=== PATIENT | female | born 1985 | race Caucasian/White ===

== ENCOUNTER 2021-03-12 09:29 | Inpatient (IN) ==
[2021-03-12] MEDS ORDERED: SOLU-Medrol 125 MG VIAL IVP ONE (09:37)
[2021-03-12] MEDS ORDERED: DUONEB 0.5 MG/3 MG (3 mL) NEB STA (09:37)
[2021-03-12] MEDS ORDERED: TORADOL 30 MG VIAL IVP STA (09:37)
[2021-03-12] MEDS ORDERED: SOLU-Medrol 125 MG VIAL ONE (09:37)
[2021-03-12] MEDS ORDERED: TORADOL 30 MG VIAL ONE (09:37)
[2021-03-12 09:52] VITALS: BMI 40.4
--- NOTE | 2021-03-12 09:54 | DR.SOBA ---
HPI Time Seen Time Seen by Provider: 03/12/21 09:30 HPI Comment HPI Comment: PATIENT WITH A HISTORY OF ASTHMA, COMPLAINS OF DIFFICULTY BREATHING, PRODUCTIVE COUGH, LEFT SIDED CHEST PAINS, SHARP IN CHARACTER X 2 WEEKS. EVALUATED IN EMERGENCY ROOM 1 WEEK AGO AND PLACED ON ATIBIOTIC CEFDINIR AND PREDNISONE. EVALUATED BY PRIMARY CARE PROVIDER AND PLACED ON ANTIBIOTIC ZITHROMAX. PATIENT NOW COMPLAINS OF BLOOD IN HER SPUTUM. Complaints Chief Complaint Doctors Comments: PRODUCTIVE COUGH, DIFFICULTY BREATHING COVID-19 Coronavirus symptoms experienced: Coughing and Shortness of Breath Reviewed Nurses Notes Reviewed: Yes Source History Provided: Patient Mode of Arrival Mode of Arrival: Ambulatory Timing Onset of Chief Complaint: 01/29/21 Duration Onset: a.m. (2) Duration: Weeks Context Onset:: At Rest PE Risk Factors:: Immobilization (OBESITY) History of:: Asthma Currently on:: Inhaled Bronchodilators and Steroids Modifying Factors Worsens:: Nothing Improves:: Nothing Associated Signs and Symptoms Associated Signs and Symptoms: Wheeze, Cough, Hemoptysis and Chest Pain If Chest Pain Quality: Sharp and Stabbing Location: Left Lower Chest If Cough Cough: Yellow and Bloody ROS Review of Systems Constitutional: Chills Eyes: No Symptoms Reported ENTM: No Symptoms Reported Respiratoy: Productive Cough, Short of Breath and Wheezing Cardiovascular: Chest Pain Gastrointestinal/Abdominal: No Symptoms Reported Genitourinary: No Symptoms Reported Neurological: No Symptoms Reported Musculoskeletal: No Symptoms Reported Integumentary: No Symptoms Reported Hematologic/Lymphatic: No Symptoms Reported Endocrine: No Symptoms Reported Psychiatric: No Symptoms Reported All Other Systems: Reviewed and Negative PE Vital Signs Vitals: Temperature 98.3 F Pulse Rate 87 Respiratory Rate 31 Blood Pressure 144/90 O2 Sat by Pulse Oximetry 100 General Limitations: Physical Limitation General Appearance: Alert, In No Apparent Distress (MODERATE PAIN), Anxious and In Distress (MILD) Head Head Exam: Normal Inspection and Atraumatic Eyes Eye exam: Normal Appearance, PERRL and EOMI ENT ENT Exam: Normal Exam and Normal Oropharynx Neck Neck Exam: Normal Inspection and Full ROM Respiratory Respiratory Exam: Chest Wall Tenderness (MARKED LEFT ANTERIOR LAT TENDERNESS T-5 TO T-11), Prolonged Expiratory Phase and Other (DIFFUSE WHEEZES) Respiratory Exam: Bilateral: Wheezing and Lower: Decreased Breath Sounds and Lower: Dullness on Percussion Abdominal Exam Abdominal Exam: Normal Inspection, Normal Bowel Sounds and Soft Extremities Extremities Exam: Normal Inspection and Full ROM Back Back Exam: Normal Inspection and Full ROM Neurologic Neurological Exam: Alert, Oriented X3 and CN II-XII Intact Psychiatric Psychiatric Exam: Normal Affect and Normal Mood Skin Skin Exam: Warm and Dry MDM Differential Diagnosis Differential Diagnosis: Asthma, Pneumonia and Pulmonary embolism Differential Diagnosis Comment:: ACUTE EXACERBATION ASTHMA COURSE Treatment Treatment: PLACED ON SEPSIS PROTOCOL UPON ARRIVAL, 90KG/30ML, IV NORMALSALLINE 1 LITER/HR X 2, SOLUMEDROL 125MG, ROCEPHIN 1GM, TORADOL 30MG IV, THE LACTIC ACID- 1.6 TAKEN OFF SEPSIS PROTOCOL AT 1040. PATIENT HAS MINIMAL IMPROVEMENT AFTER CONTINUOUS DUO NEB AEROSOL AFTER 1 HOUR TREATMENT Reevaluation 1st: Improved (MINIMAL, WHEEZES PERSIST, IMPOVEMENT IN AIR EXCHANGE) Consultation Call Returned: 11:55 Consultation Comments: DISCUSSED FINDINGS WITH DR WOO FOR ADMIT INPATIENT ROR Labs Reviewed Laboratory Results Reviewed?: Yes Result Diagrams: 03/12/21 09:45 03/12/21 09:45 Laboratory: WBC 12.9 X10^3/uL (3.6-10.0) H 03/12/21 09:45 RBC 4.92 X10^6/uL (3.5-5.4) 03/12/21 09:45 Hgb 15.4 g/dL (12.0-16.0) 03/12/21 09:45 Hct 45.2 % (36.0-47.0) 03/12/21 09:45 MCV 91.9 fL (80.0-100.0) 03/12/21 09:45 MCH 31.3 pg (27.0-34.0) 03/12/21 09:45 MCHC 34.1 g/dL (33.0-35.0) 03/12/21 09:45 RDW 13.3 % (11.6-16.5) 03/12/21 09:45 Plt Count 473 X10^3/uL (150.0-450.0) H 03/12/21 09:45 MPV 6.7 fL (7.4-11.0) L 03/12/21 09:45 Neut % (Auto) 47.1 % (42.0-75.0) 03/12/21 09:45 Lymph % (Auto) 45.5 % (21.0-51.0) 03/12/21 09:45 [place] % (Auto) 5.8 % (0.0-13.0) 03/12/21 09:45 Eos % (Auto) 0.8 % (0.9-2.9) L 03/12/21 09:45 Baso % (Auto) 0.8 % (0.2-1.0) 03/12/21 09:45 Neut # (Auto) 6.1 x10^3/uL (2.2-4.8) H 03/12/21 09:45 Lymph # (Auto) 5.9 X10^3/uL (1.3-2.9) H 03/12/21 09:45 [place] # (Auto) 0.7 x10^3/uL (0.3-0.8) 03/12/21 09:45 Eos # (Auto) 0.1 x10^3/uL (0.0-0.2) 03/12/21 09:45 Baso # (Auto) 0.1 X10^3/uL (0.0-0.1) 03/12/21 09:45 Absolute Nucleated RBC 0.0 /100WBC 03/12/21 09:45 D-Dimer 0.51 ug/ml (0.0-0.57) 03/12/21 09:45 Sodium 143 mmol/L (136-145) 03/12/21 09:45 Corrected Sodium TNP 03/12/21 09:45 Potassium 3.8 mmol/L (3.5-5.1) 03/12/21 09:45 Chloride 104 mmol/L (98-107) 03/12/21 09:45 Carbon Dioxide 29.4 mmol/L (21-32) 03/12/21 09:45 BUN 10 mg/dL (7-18) 03/12/21 09:45 Creatinine 0.98 mg/dL (0.55-1.02) 03/12/21 09:45 Est GFR (MDRD) Af Amer > 60 (>60) 03/12/21 09:45 Est GFR (MDRD) Non-Af > 60 (>60) 03/12/21 09:45 Glucose 86 mg/dL (65-99) 03/12/21 09:45 Lactic Acid 1.6 mmol/L (0.4-2.0) 03/12/21 09:45 Calcium 9.0 mg/dL (8.5-10.1) 03/12/21 09:45 Corrected Calcium 9.8 mg/dL (8.5-10.1) 03/12/21 09:45 Total Bilirubin 0.40 mg/dL (0.2-1.0) 03/12/21 09:45 AST 23 Units/L (15-37) 03/12/21 09:45 ALT 39 Units/L (12-78) 03/12/21 09:45 Alkaline Phosphatase 85 Units/L (46-116) 03/12/21 09:45 Troponin I < 0.02 ng/mL (0-1.5) 03/12/21 09:45 Total Protein 7.4 g/dL (6.4-8.2) 03/12/21 09:45 Albumin 3.0 g/dL (3.4-5.0) L 03/12/21 09:45 Globulin 4.4 g/dL (2.5-4.5) 03/12/21 09:45 Albumin/Globulin Ratio 0.7 Ratio (1.1-2.1) L 03/12/21 09:45 SARS-CoV-2 (PCR) Negative (NEGATIVE) 03/12/21 09:57 Influenza Type A (PCR) Negative (NEGATIVE) 03/12/21 09:57 Influenza Type B (PCR) Negative (NEGATIVE) 03/12/21 09:57 RSV (PCR) Positive (NEGATIVE) A 03/12/21 09:57 XRAY X-ray Results: CHEST XRAY PA&LAT, NO EVIDENCE OF EXUDATES Opioid Opioid Risk Tool Total: 0 Total Score Risk Category: Low Risk Copyright: Nicholas MINAYA predicting aberrant behaviors Diagnosis Discharge Problem: Acute bronchiolitis due to respiratory syncytial virus, Acute bronchospasm
[2021-03-12] MEDS ORDERED: ROCEPHIN 1 GRAM IV PREMIX 1 G/50 ML IV.SOLN. IV ONE ×2 (09:55→10:08)
[2021-03-12] MEDS ORDERED: DUONEB 0.5 MG/3 MG (3 mL) NEB ONE ×2 (09:56→13:44)
[2021-03-12] MEDS ORDERED: NS 1000 ML 1,000 ML ONE ×2 (09:56→13:34)
[2021-03-12 09:58] LABS: BASOPHILS # (AUTO) 0.1 X10^3/uL (0.0-0.1); BASOPHILS % (AUTO) 0.8 % (0.2-1.0); EOSINOPHILS # (AUTO) 0.1 x10^3/uL (0.0-0.2); EOSINOPHILS % (AUTO) 0.8 % (0.9-2.9); HEMATOCRIT 45.2 % (36.0-47.0); HEMOGLOBIN 15.4 g/dL (12.0-16.0); LYMPHOCYTES # (AUTO) 5.9 X10^3/uL (1.3-2.9); LYMPHOCYTES % (AUTO) 45.5 % (21.0-51.0); MEAN CORPUSCULAR HEMOGLOBIN 31.3 pg (27.0-34.0); MEAN CORPUSCULAR HGB CONC 34.1 g/dL (33.0-35.0); MEAN CORPUSCULAR VOLUME 91.9 fL (80.0-100.0); MEAN PLATELET VOLUME 6.7 fL (7.4-11.0); MONOCYTES # (AUTO) 0.7 x10^3/uL (0.3-0.8); MONOCYTES % (AUTO) 5.8 % (0.0-13.0); NEUTROPHILS # (AUTO) 6.1 x10^3/uL (2.2-4.8); NEUTROPHILS % (AUTO) 47.1 % (42.0-75.0); PLATELET COUNT 473 X10^3/uL (150.0-450.0); RED BLOOD COUNT 4.92 X10^6/uL (3.5-5.4); RED CELL DISTRIBUTION WIDTH 13.3 % (11.6-16.5); WHITE BLOOD COUNT 12.9 X10^3/uL (3.6-10.0)
[2021-03-12] MEDS: NS 1000 ML 1,000 ML IV ONE ×2 (10:04→10:05)
--- NOTE | 2021-03-12 10:05 | RAD ---
HISTORYCHEST PAIN, SOBSTUDYCHEST, PA/LAT ADULTCOMPARISONPortable chest March 07, 2021.FINDINGSThe trachea is midline. The cardiac silhouette is unremarkable . The lungs are clear without focal infiltrate or effusion. The bony thorax is unremarkable.IMPRESSIONNo acute cardiopulmonary diseas and no change from prior chest film March 07, 2021. E.Electronically signed by: AMADO FREEMAN (Mar 12, 2021 10:04:00)
[2021-03-12 10:14] LABS: ALANINE AMINOTRANSFERASE 39 Units/L (12-78); ALKALINE PHOSPHATASE 85 Units/L (46-116); ASPARTATE AMINO TRANSFERASE 23 Units/L (15-37); BLOOD UREA NITROGEN 10 mg/dL (7-18); CARBON DIOXIDE 29.4 mmol/L (21-32); CHLORIDE 104 mmol/L (98-107); COR CA(FOR HYPOALB) 9.8 mg/dL (8.5-10.1); CREATININE 0.98 mg/dL (0.55-1.02); SODIUM 143 mmol/L (136-145); TOTAL PROTEIN 7.4 g/dL (6.4-8.2); TROPONIN I < 0.02 ng/mL (0-1.5); eGFR NON BLACK RACES > 60 (>60)
[2021-03-12 10:15] LABS: LACTIC ACID 1.6 mmol/L (0.4-2.0)
[2021-03-12] MEDS ORDERED: ZOFRAN INJ 4 MG VIAL IVP ONE (10:19)
[2021-03-12] MEDS ORDERED: MORPHINE SULFATE INJ 4 MG IVP ONE (10:19)
[2021-03-12] MEDS ORDERED: MORPHINE SULFATE INJ 4 MG ONE (10:20)
[2021-03-12] MEDS ORDERED: ZOFRAN INJ 4 MG VIAL ONE (10:20)
[2021-03-12] MEDS ORDERED: TORADOL 30 MG VIAL IVP PRN (12:13)
[2021-03-12] MEDS ORDERED: XANAX PO PRN (12:13)
[2021-03-12] MEDS ORDERED: ROCEPHIN VIAL 1 GRAM 1 G in NS 100 ML IV + SPIKE MINIBAG* 100 ML IV ONE (12:13)
[2021-03-12 12:31] LABS: ABG ALLEN TEST POS; ABG BASE EXCESS 3.6 mmol/L (-2.0-2.0); ABG HCO3 26.1 mmol/L (22-26)
[2021-03-12] MEDS ORDERED: NS 500 ML IV 500 ML IV ONE (13:34)
[2021-03-12] MEDS ORDERED: ZITHROMAX INJ 500 MG VIAL IV ONE (13:34)
[2021-03-12] MEDS: NS 1000 ML 1,000 ML IV SCH (13:37)
[2021-03-12] MEDS: ZITHROMAX INJ 500 MG VIAL 500 MG in NS 250 ML IV 250 ML IV SCH (13:39)
[2021-03-12] MEDS: DUONEB 0.5 MG/3 MG (3 mL) NEB SCH ×3 (13:39→21:00)
--- NOTE | 2021-03-12 13:56 | DR.H&P ---
H&P History & Physical for Day of: H&P Date: 03/12/21 Chief Complaint Chief Complaint: Shortness of breath Wheezing Allergies Allergies Allergy/AdvReac Type Severity Reaction Status Date / Time lisinopril Allergy Verified 03/12/21 09:30 sulfamethoxazole Allergy Verified 03/12/21 09:30 [From Bactrim] trimethoprim [From Bactrim] Allergy Verified 03/12/21 09:30 History of Present Illness History of Present Illness: Pt is a 35 year old female past medical history of Asthma, Hypertension, DDD, KEVIN, Smoking, presenting after failing outpatient treatment for asthma exacerbation and bronchiolitis. She reports that for the past week she has had worsening shortness of breath. She was seen in hospital at [facility] and discharged with Prednisone and Cefdinir. SHe was then seen in clinic on Friday and was recommended for direct admission due to her labored breathing but refused and instead requested outpatient treatment. She was prescribed steroids, duonebs, and azithromycin. Pt states that over the weekend her symptoms progressively worsened and this morning she had significant shortness of breath, wheezing, and chest muscle pain. Labs/imaging: Wbc 12.9, Hgb 15.4, Plt 473, D-dimer 0.51, ABG: pH 7.52, pCO2 32, pO2 73, HCO3 26, O2sat 96% on RA, Na 143, K 3.8, Creatinine 0.98, Glucose 86, LA 1.6, Rapid flu and COVID-19 negative, RSV positive. CXR: no acute cardiopulmonary disease. Pt was admitted for Asthma exacerbation and Acute Bronchiolitis due to RSV. She was started on IVF NS@75ml/h, supplemental O2, IV Solumedrol 80mg Q8h, IV Zithromax, scheduled bronchodilators. Restart home medications. Pt with labored breathing and severe wheezing on exam, will monitor closely. Continue to monitor and follow up labs/imaging in the morning. Past Medical History Past Medical History: Asthma, Dyslipidemia and Hypertension Social History Does patient currently use any type of tobacco product: Yes Have you used tobacco products in the last 12 months: Yes Type of Tobacco Use: Cigarettes Does any household member use tobacco: No Alcohol Use: None Medications Home Medications: lisinopril Allergy (Verified 03/12/21 09:30) sulfamethoxazole [From Bactrim] Allergy (Verified 03/12/21 09:30) trimethoprim [From Bactrim] Allergy (Verified 03/12/21 09:30) CONTINUE taking the following medications alprazolam 1 - 2 mg PO BID PRN 03/12/21 [History] atorvastatin 40 mg PO HS 03/12/21 [History] azithromycin 250 mg PO DIRECTED 03/12/21 [History] cefdinir 300 mg PO BID 03/12/21 [History] hydrocodone-acetaminophen 1 tab PO BID 03/12/21 [History] ipratropium-albuterol 1 ml INHALATION BID 03/12/21 [History] ketorolac 10 mg PO PRN PRN 03/12/21 [History] metoprolol tartrate 50 mg PO TID PRN 03/12/21 [History] prednisone 20 mg PO DIRECTED 03/12/21 [History] Labs Result Diagrams: 03/13/21 05:15 03/13/21 05:15 Labs: Laboratory WBC 12.9 X10^3/uL (3.6-10.0) H 03/12/21 09:45 RBC 4.92 X10^6/uL (3.5-5.4) 03/12/21 09:45 Hgb 15.4 g/dL (12.0-16.0) 03/12/21 09:45 Hct 45.2 % (36.0-47.0) 03/12/21 09:45 MCV 91.9 fL (80.0-100.0) 03/12/21 09:45 MCH 31.3 pg (27.0-34.0) 03/12/21 09:45 MCHC 34.1 g/dL (33.0-35.0) 03/12/21 09:45 RDW 13.3 % (11.6-16.5) 03/12/21 09:45 Plt Count 473 X10^3/uL (150.0-450.0) H 03/12/21 09:45 MPV 6.7 fL (7.4-11.0) L 03/12/21 09:45 Neut % (Auto) 47.1 % (42.0-75.0) 03/12/21 09:45 Lymph % (Auto) 45.5 % (21.0-51.0) 03/12/21 09:45 [place] % (Auto) 5.8 % (0.0-13.0) 03/12/21 09:45 Eos % (Auto) 0.8 % (0.9-2.9) L 03/12/21 09:45 Baso % (Auto) 0.8 % (0.2-1.0) 03/12/21 09:45 Neut # (Auto) 6.1 x10^3/uL (2.2-4.8) H 03/12/21 09:45 Lymph # (Auto) 5.9 X10^3/uL (1.3-2.9) H 03/12/21 09:45 [place] # (Auto) 0.7 x10^3/uL (0.3-0.8) 03/12/21 09:45 Eos # (Auto) 0.1 x10^3/uL (0.0-0.2) 03/12/21 09:45 Baso # (Auto) 0.1 X10^3/uL (0.0-0.1) 03/12/21 09:45 Absolute Nucleated RBC 0.0 /100WBC 03/12/21 09:45 D-Dimer 0.51 ug/ml (0.0-0.57) 03/12/21 09:45 Sample Site Rrad 03/12/21 12:25 ABG pH 7.520 (7.35-7.45) H 03/12/21 12:25 ABG pCO2 32.0 mmHg (35.0-45.0) L 03/12/21 12:25 ABG pO2 73.0 mmHg (80.0-100.0) L 03/12/21 12:25 ABG HCO3 26.1 mmol/L (22-26) H 03/12/21 12:25 ABG O2 Saturation 96.0 % (90-100) 03/12/21 12:25 ABG Base Excess 3.6 mmol/L (-2.0-2.0) H 03/12/21 12:25 Grant Test Pos 03/12/21 12:25 A-a Gradient 37.0 mmHg 03/12/21 12:25 FiO2 21.0 03/12/21 12:25 Blood Gas Comments Pt rajni well elj cdn 03/12/21 12:25 Sodium 143 mmol/L (136-145) 03/12/21 09:45 Corrected Sodium TNP 03/12/21 09:45 Potassium 3.8 mmol/L (3.5-5.1) 03/12/21 09:45 Chloride 104 mmol/L (98-107) 03/12/21 09:45 Carbon Dioxide 29.4 mmol/L (21-32) 03/12/21 09:45 BUN 10 mg/dL (7-18) 03/12/21 09:45 Creatinine 0.98 mg/dL (0.55-1.02) 03/12/21 09:45 Est GFR (MDRD) Af Amer > 60 (>60) 03/12/21 09:45 Est GFR (MDRD) Non-Af > 60 (>60) 03/12/21 09:45 Glucose 86 mg/dL (65-99) 03/12/21 09:45 Lactic Acid 1.6 mmol/L (0.4-2.0) 03/12/21 09:45 Calcium 9.0 mg/dL (8.5-10.1) 03/12/21 09:45 Corrected Calcium 9.8 mg/dL (8.5-10.1) 03/12/21 09:45 Total Bilirubin 0.40 mg/dL (0.2-1.0) 03/12/21 09:45 AST 23 Units/L (15-37) 03/12/21 09:45 ALT 39 Units/L (12-78) 03/12/21 09:45 Alkaline Phosphatase 85 Units/L (46-116) 03/12/21 09:45 Troponin I < 0.02 ng/mL (0-1.5) 03/12/21 09:45 Total Protein 7.4 g/dL (6.4-8.2) 03/12/21 09:45 Albumin 3.0 g/dL (3.4-5.0) L 03/12/21 09:45 Globulin 4.4 g/dL (2.5-4.5) 03/12/21 09:45 Albumin/Globulin Ratio 0.7 Ratio (1.1-2.1) L 03/12/21 09:45 SARS-CoV-2 (PCR) Negative (NEGATIVE) 03/12/21 09:57 Influenza Type A (PCR) Negative (NEGATIVE) 03/12/21 09:57 Influenza Type B (PCR) Negative (NEGATIVE) 03/12/21 09:57 RSV (PCR) Positive (NEGATIVE) A 03/12/21 09:57 Review of Systems Constitutional: Chills and Weakness Eyes: No Symptoms Reported ENT: Nose Congestion Respiratory: Cough, Shortness of Breath, Pleuritic Pain and Wheezing Cardiovascular: No Symptoms Reported Gastrointestinal: No Symptoms Reported Genitourinary: No Symptoms Reported Musculoskeletal: No Symptoms Reported Skin: No Symptoms Reported Neurological: No Symptoms Reported Physical Exam Vital Signs: Temperature 98.3 F Pulse Rate 76 Respiratory Rate 26 Blood Pressure 119/71 O2 Sat by Pulse Oximetry 99 Oriented: Normal Eyes: Normal Ear: Normal Nose: Normal Throat: Normal Respiratory: Diminished Throughout, Rhonchi Throughout and Wheezes Throughout Cardiovascular: Normal : Normal Auscultation: Bowel Sounds: Normal Palpation: Normal Tenderness: Normal Skin: Normal Musculoskeletal: Normal Psychiatric: Normal Mood Description: Calm and Appropriate Affect: Normal Speech Pattern: Clear and Appropriate Assessment/Plan (1) Asthma exacerbation: Status: Acute Plan: Supplemental O2, IV steroids, Azithromycin, Bronchodilators. (2) Acute bronchiolitis due to respiratory syncytial virus: Status: Acute Review H&P Reviewed: Yes Patient was examined?: Yes
[2021-03-12] MEDS: SOLU-Medrol 125 MG VIAL IVP SCH ×2 (16:53→21:22)
[2021-03-12] MEDS ORDERED: TORADOL 30 MG VIAL IVP ONE (17:28)
[2021-03-12] MEDS: ROBITUSSIN DM PO SCH ×2 (17:47→20:22)
[2021-03-12] MEDS: LOVENOX INJ 40 MG SYR SC SCH (17:47)
[2021-03-12] MEDS ORDERED: ROBITUSSIN AC PO SCH (18:00)
[2021-03-12] MEDS ORDERED: NICOTINE PATCH TD ONE (19:58)
[2021-03-12] MEDS: NICOTINE PATCH TD SCH (20:14)
[2021-03-12] MEDS: LOPRESSOR TAB 50 MG PO SCH (20:20)
[2021-03-12] MEDS: LIPITOR TAB 40 MG PO SCH (20:20)
[2021-03-12] MEDS: ZANAFLEX PO SCH (20:20)
[2021-03-12] MEDS: NEURONTIN TAB 600 MG PO PRN (20:21)
[2021-03-12] MEDS: NORCO 10/325 TAB PO PRN (20:21)
[2021-03-12] MEDS ORDERED: NORCO 10/325 TAB PO SCH (21:00)
[2021-03-12] MEDS: PULMICORT NEB TX 0.5 MG NEB SCH (21:00)
[2021-03-12] MEDS ORDERED: NEURONTIN TAB 600 MG PO SCH (22:00)
[2021-03-12] MEDS ORDERED: LOPRESSOR TAB 50 MG PO SCH (22:00)
[2021-03-13] MEDS: XANAX PO PRN ×3 (00:13→21:00)
[2021-03-13] MEDS: TUSSIONEX PENNKINETIC SUSP PO SCH ×2 (00:13→22:14)
[2021-03-13] MEDS: DUONEB 0.5 MG/3 MG (3 mL) NEB SCH ×6 (00:15→20:48)
[2021-03-13] MEDS: NS 1000 ML 1,000 ML IV SCH ×2 (03:28→17:56)
[2021-03-13] MEDS: SOLU-Medrol 125 MG VIAL IVP SCH ×3 (05:20→22:14)
[2021-03-13 05:39] LABS: BASOPHILS # (AUTO) 0.2 X10^3/uL (0.0-0.1); BASOPHILS % (AUTO) 1.7 % (0.2-1.0); EOSINOPHILS % (AUTO) 0.1 % (0.9-2.9); HEMOGLOBIN 14.2 g/dL (12.0-16.0); LYMPHOCYTES % (AUTO) 15.8 % (21.0-51.0); MEAN CORPUSCULAR HEMOGLOBIN 31.4 pg (27.0-34.0); MEAN CORPUSCULAR HGB CONC 34.7 g/dL (33.0-35.0); MEAN CORPUSCULAR VOLUME 90.7 fL (80.0-100.0); MEAN PLATELET VOLUME 7.1 fL (7.4-11.0); MONOCYTES # (AUTO) 0.4 x10^3/uL (0.3-0.8); MONOCYTES % (AUTO) 2.8 % (0.0-13.0); NEUTROPHILS % (AUTO) 79.6 % (42.0-75.0); PLATELET COUNT 512 X10^3/uL (150.0-450.0); RED BLOOD COUNT 4.52 X10^6/uL (3.5-5.4); RED CELL DISTRIBUTION WIDTH 13.8 % (11.6-16.5); WHITE BLOOD COUNT 12.6 X10^3/uL (3.6-10.0)
--- NOTE | 2021-03-13 05:40 | RAD ---
PROCEDURE: Chest X-ray 1 View .HISTORY: RSV, WHEEZING .TECHNIQUE: AP view .COMPARISON: 03/12/2021.TECHNICAL QUALITY: Poor inspiratory effort.FINDINGS:Normal size heart .Mediastinum and hilar regions show no masses or lymphadenopathy .Normal central vascularity .No pulmonary consolidation, masses, pleural fluid, or pneumothorax .No acute bony abnormality .IMPRESSION:No active cardiopulmonary disease .Electronically signed by: Jefe Franklin (Mar 13, 2021 05:37:36)
[2021-03-13 05:52] LABS: ALANINE AMINOTRANSFERASE 42 Units/L (12-78); ALBUMIN 2.7 g/dL (3.4-5.0); ALKALINE PHOSPHATASE 80 Units/L (46-116); ASPARTATE AMINO TRANSFERASE 23 Units/L (15-37); BLOOD UREA NITROGEN 13 mg/dL (7-18); CALCIUM 8.9 mg/dL (8.5-10.1); CARBON DIOXIDE 25.2 mmol/L (21-32); CHLORIDE 105 mmol/L (98-107); COR CA(FOR HYPOALB) 9.9 mg/dL (8.5-10.1); COR NA(FOR HYPERGLY) 145 mmol/L (136-145); CREATININE 0.99 mg/dL (0.55-1.02); SODIUM 142 mmol/L (136-145); TOTAL PROTEIN 6.9 g/dL (6.4-8.2); eGFR NON BLACK RACES > 60 (>60)
[2021-03-13 05:58] LABS: BAND NEUTROPHILS % 4 % (0-10); PLATELET MORPHOLOGY COMMENT NORMAL (NORMAL)
[2021-03-13] MEDS: LOPRESSOR TAB 50 MG PO SCH ×2 (09:25→22:13)
[2021-03-13] MEDS: ROBITUSSIN DM PO SCH ×5 (09:26→22:15)
[2021-03-13] MEDS: ZITHROMAX INJ 500 MG VIAL 500 MG in NS 250 ML IV 250 ML IV SCH (09:26)
[2021-03-13] MEDS: LOVENOX INJ 40 MG SYR SC SCH (09:26)
[2021-03-13] MEDS: NICOTINE PATCH TD SCH (09:26)
[2021-03-13] MEDS: PULMICORT NEB TX 0.5 MG NEB SCH ×2 (09:43→20:48)
--- NOTE | 2021-03-13 09:46 | PCM.PROG ---
Progress Note Progress Note for Day of Date of Exam: 03/13/21 Subjective Subjective: Pt is a 35 year old female past medical history of Asthma, Hypertension, DDD, KEVIN, Smoking, admitted for asthma exacerbation and acute bronchiolitis due to RSV. This morning pt reports feeling a little better. Her breathing has improved along with chest tightness. However, on exam she contin ues to have significant wheezing. She is requiring 3L supplemental O2. Labs/imaging: Wbc 12.6, Hgb 14.2, Plt 512, Na 142, K 4.1, Creatinine 0.99, Glucose 205, CXR: no acute cardiopulmonary disease. Hospital/treatment course includes: IVF NS@75ml/h, supplemental O2, IV Solumedrol 80mg Q8h, IV Zithromax, scheduled bronchodilators, Tussionex. Pt with some improvement in respiratory status, will continue current treatment plan. Continue to monitor and follow up labs/imaging in the morning. Past Medical Family Social History Past Med/Fam/Surg Hx: No changes since H&P Allergies: Allergies lisinopril Allergy (Verified 03/12/21 09:30) sulfamethoxazole [From Bactrim] Allergy (Verified 03/12/21 09:30) trimethoprim [From Bactrim] Allergy (Verified 03/12/21 09:30) Review of Systems ROS: No change since H&P Vital Signs and I&O's Vital Signs: Temperature 97.8 F Pulse Rate [Left Radial] 88 Pulse Rate 90 Respiratory Rate 22 Blood Pressure [Right Arm] 176/82 Blood Pressure [Left Arm] 143/95 Blood Pressure 127/60 O2 Sat by Pulse Oximetry 96 Intake and Output: Intake & Output 03/10/21 03/11/21 03/12/21 03/13/21 23:59 23:59 23:59 23:59 Intake Total 2019 1740 / 1740 Balance 2019 1740 / 1740 Physical Exam Oriented: Normal Eyes: Normal Ear: Normal Nose: Normal Throat: Normal Respiratory: Diminished and Wheezes Cardiovascular: Normal : Normal Auscultation: Bowel Sounds: Normal Tenderness: Normal Skin: Normal Musculoskeletal: Normal Psychiatric: Normal Mood Description: Calm and Appropriate Affect: Normal Speech Pattern: Clear and Appropriate Laboratory and Diagnostics Result Diagrams: 03/13/21 05:15 03/13/21 05:15 Labs: Laboratory WBC 12.6 X10^3/uL (3.6-10.0) H 03/13/21 05:15 RBC 4.52 X10^6/uL (3.5-5.4) 03/13/21 05:15 Hgb 14.2 g/dL (12.0-16.0) 03/13/21 05:15 Hct 41.0 % (36.0-47.0) 03/13/21 05:15 MCV 90.7 fL (80.0-100.0) 03/13/21 05:15 MCH 31.4 pg (27.0-34.0) 03/13/21 05:15 MCHC 34.7 g/dL (33.0-35.0) 03/13/21 05:15 RDW 13.8 % (11.6-16.5) 03/13/21 05:15 Plt Count 512 X10^3/uL (150.0-450.0) H 03/13/21 05:15 Plt Count Comment Increased (ADEQUATE) A 03/13/21 05:15 MPV 7.1 fL (7.4-11.0) L 03/13/21 05:15 Neut % (Auto) 79.6 % (42.0-75.0) H 03/13/21 05:15 Lymph % (Auto) 15.8 % (21.0-51.0) L 03/13/21 05:15 [place] % (Auto) 2.8 % (0.0-13.0) 03/13/21 05:15 Eos % (Auto) 0.1 % (0.9-2.9) L 03/13/21 05:15 Baso % (Auto) 1.7 % (0.2-1.0) H 03/13/21 05:15 Neut # (Auto) 10.0 x10^3/uL (2.2-4.8) H 03/13/21 05:15 Lymph # (Auto) 2.0 X10^3/uL (1.3-2.9) 03/13/21 05:15 [place] # (Auto) 0.4 x10^3/uL (0.3-0.8) 03/13/21 05:15 Eos # (Auto) 0.0 x10^3/uL (0.0-0.2) 03/13/21 05:15 Baso # (Auto) 0.2 X10^3/uL (0.0-0.1) H 03/13/21 05:15 Absolute Nucleated RBC 0.1 /100WBC 03/13/21 05:15 Total Counted 100 03/13/21 05:15 Neutrophils % (Manual) 75 % (39-76) 03/13/21 05:15 Band Neutrophils % 4 % (0-10) 03/13/21 05:15 Lymphocytes % (Manual) 17 % (13-43) 03/13/21 05:15 Monocytes % (Manual) 4 % (4-9) 03/13/21 05:15 Plt Morphology Comment Normal (NORMAL) 03/13/21 05:15 RBC Morphology Normal (NORMAL) 03/13/21 05:15 D-Dimer 0.51 ug/ml (0.0-0.57) 03/12/21 09:45 Sample Site Rrad 03/12/21 12:25 ABG pH 7.520 (7.35-7.45) H 03/12/21 12:25 ABG pCO2 32.0 mmHg (35.0-45.0) L 03/12/21 12:25 ABG pO2 73.0 mmHg (80.0-100.0) L 03/12/21 12:25 ABG HCO3 26.1 mmol/L (22-26) H 03/12/21 12:25 ABG O2 Saturation 96.0 % (90-100) 03/12/21 12:25 ABG Base Excess 3.6 mmol/L (-2.0-2.0) H 03/12/21 12:25 Grant Test Pos 03/12/21 12:25 A-a Gradient 37.0 mmHg 03/12/21 12:25 FiO2 21.0 03/12/21 12:25 Blood Gas Comments Pt rajni well elj cdn 03/12/21 12:25 Sodium 142 mmol/L (136-145) 03/13/21 05:15 Corrected Sodium 145 mmol/L (136-145) 03/13/21 05:15 Potassium 4.1 mmol/L (3.5-5.1) 03/13/21 05:15 Chloride 105 mmol/L (98-107) 03/13/21 05:15 Carbon Dioxide 25.2 mmol/L (21-32) 03/13/21 05:15 BUN 13 mg/dL (7-18) 03/13/21 05:15 Creatinine 0.99 mg/dL (0.55-1.02) 03/13/21 05:15 Est GFR (MDRD) Af Amer > 60 (>60) 03/13/21 05:15 Est GFR (MDRD) Non-Af > 60 (>60) 03/13/21 05:15 Glucose 205 mg/dL (65-99) H 03/13/21 05:15 Lactic Acid 1.6 mmol/L (0.4-2.0) 03/12/21 09:45 Calcium 8.9 mg/dL (8.5-10.1) 03/13/21 05:15 Corrected Calcium 9.9 mg/dL (8.5-10.1) 03/13/21 05:15 Total Bilirubin 0.10 mg/dL (0.2-1.0) L 03/13/21 05:15 AST 23 Units/L (15-37) 03/13/21 05:15 ALT 42 Units/L (12-78) 03/13/21 05:15 Alkaline Phosphatase 80 Units/L (46-116) 03/13/21 05:15 Troponin I < 0.02 ng/mL (0-1.5) 03/12/21 09:45 Total Protein 6.9 g/dL (6.4-8.2) 03/13/21 05:15 Albumin 2.7 g/dL (3.4-5.0) L 03/13/21 05:15 Globulin 4.2 g/dL (2.5-4.5) 03/13/21 05:15 Albumin/Globulin Ratio 0.6 Ratio (1.1-2.1) L 03/13/21 05:15 SARS-CoV-2 (PCR) Negative (NEGATIVE) 03/12/21 09:57 Influenza Type A (PCR) Negative (NEGATIVE) 03/12/21 09:57 Influenza Type B (PCR) Negative (NEGATIVE) 03/12/21 09:57 RSV (PCR) Positive (NEGATIVE) A 03/12/21 09:57 Plan (1) Asthma exacerbation: Status: Acute Plan: Supplemental O2, IV steroids, Azithromycin, Bronchodilators. (2) Acute bronchiolitis due to respiratory syncytial virus: Status: Acute
[2021-03-13] MEDS: NORCO 10/325 TAB PO PRN ×2 (12:01→22:14)
[2021-03-13] MEDS: NEURONTIN TAB 600 MG PO PRN (17:22)
[2021-03-13] MEDS: LIPITOR TAB 40 MG PO SCH (22:13)
[2021-03-13] MEDS: ZANAFLEX PO SCH (22:14)
[2021-03-14] MEDS: DUONEB 0.5 MG/3 MG (3 mL) NEB SCH ×2 (00:33→05:15)
[2021-03-14] MEDS: NEURONTIN TAB 600 MG PO PRN (01:07)
[2021-03-14] MEDS: SOLU-Medrol 125 MG VIAL IVP SCH (05:14)
[2021-03-14 05:34] LABS: BASOPHILS % (AUTO) 0.1 % (0.2-1.0); HEMATOCRIT 39.9 % (36.0-47.0); HEMOGLOBIN 13.4 g/dL (12.0-16.0); LYMPHOCYTES # (AUTO) 2.8 X10^3/uL (1.3-2.9); LYMPHOCYTES % (AUTO) 13.9 % (21.0-51.0); MEAN CORPUSCULAR HEMOGLOBIN 30.9 pg (27.0-34.0); MEAN CORPUSCULAR HGB CONC 33.5 g/dL (33.0-35.0); MEAN CORPUSCULAR VOLUME 92.3 fL (80.0-100.0); MEAN PLATELET VOLUME 7.7 fL (7.4-11.0); MONOCYTES # (AUTO) 0.6 x10^3/uL (0.3-0.8); MONOCYTES % (AUTO) 2.8 % (0.0-13.0); NEUTROPHILS # (AUTO) 16.6 x10^3/uL (2.2-4.8); NEUTROPHILS % (AUTO) 83.2 % (42.0-75.0); PLATELET COUNT 482 X10^3/uL (150.0-450.0); RED BLOOD COUNT 4.33 X10^6/uL (3.5-5.4); RED CELL DISTRIBUTION WIDTH 13.7 % (11.6-16.5)
[2021-03-14 05:50] LABS: ALANINE AMINOTRANSFERASE 37 Units/L (12-78); ALBUMIN 2.4 g/dL (3.4-5.0); ALKALINE PHOSPHATASE 70 Units/L (46-116); ASPARTATE AMINO TRANSFERASE 19 Units/L (15-37); BLOOD UREA NITROGEN 9 mg/dL (7-18); CALCIUM 8.7 mg/dL (8.5-10.1); CARBON DIOXIDE 25.1 mmol/L (21-32); CHLORIDE 108 mmol/L (98-107); COR NA(FOR HYPERGLY) 145 mmol/L (136-145); CREATININE 0.79 mg/dL (0.55-1.02); SODIUM 144 mmol/L (136-145); TOTAL PROTEIN 6.3 g/dL (6.4-8.2); eGFR NON BLACK RACES > 60 (>60)
--- NOTE | 2021-03-14 05:56 | RAD ---
PROCEDURE: Chest X-ray 1 View .HISTORY: RSV, WHEEZING .TECHNIQUE: AP view .COMPARISON: 03/13/2021.TECHNICAL QUALITY: Satisfactory .FINDINGS:Normal size heart .Mediastinum and hilar regions show no masses or lymphadenopathy .Normal central vascularity .No pulmonary consolidation, masses, pleural fluid, or pneumothorax .No acute bony abnormality .IMPRESSION:No active cardiopulmonary disease .Electronically signed by: Jefe Franklin (Mar 14, 2021 05:53:05)
[2021-03-14] MEDS: NS 1000 ML 1,000 ML IV SCH (06:11)
[2021-03-14] MEDS: XANAX PO PRN (07:47)
[2021-03-14] MEDS: ZITHROMAX INJ 500 MG VIAL 500 MG in NS 250 ML IV 250 ML IV SCH (08:11)
--- NOTE | 2021-03-14 08:11 | W.DIS.FURT ---
Summary of Discharge Discharge Summary of Date Date of Exam: 03/14/21 Admission Date Date of Admission: 03/12/21 Admission Diagnosis Patient Problems (Updated 03/13/21 @ 09:35 by Parminder Ramires) Acute bronchiolitis due to respiratory syncytial virus (Acute) J21.0 Acute bronchospasm (Acute) J98.01 Vital Signs: Vital Signs (72 hours) 03/12/21 09:30 03/12/21 09:31 03/12/21 09:45 Temperature 98.3 F Pulse Rate 86 88 85 Pulse Rate [Left Radial] Respiratory Rate 20 Blood Pressure 187/110 180/110 Blood Pressure [Left Arm] Blood Pressure [Right Arm] O2 Sat by Pulse Oximetry 95 96 94 L 03/12/21 09:52 03/12/21 09:58 03/12/21 10:00 Temperature Pulse Rate 86 85 Pulse Rate [Left Radial] Respiratory Rate 18 47 H Blood Pressure 177/73 Blood Pressure [Left Arm] Blood Pressure [Right Arm] O2 Sat by Pulse Oximetry 96 03/12/21 10:01 03/12/21 10:15 03/12/21 10:22 Temperature Pulse Rate 83 86 Pulse Rate [Left Radial] Respiratory Rate 22 Blood Pressure 143/65 Blood Pressure [Left Arm] Blood Pressure [Right Arm] O2 Sat by Pulse Oximetry 99 03/12/21 10:30 03/12/21 10:31 03/12/21 10:46 Temperature Pulse Rate 67 72 78 Pulse Rate [Left Radial] Respiratory Rate 34 H 37 H 35 H Blood Pressure 128/61 Blood Pressure [Left Arm] Blood Pressure [Right Arm] O2 Sat by Pulse Oximetry 99 99 99 03/12/21 10:52 03/12/21 11:00 03/12/21 11:15 Temperature Pulse Rate 71 65 Pulse Rate [Left Radial] Respiratory Rate 22 38 H 33 H Blood Pressure 131/87 Blood Pressure [Left Arm] Blood Pressure [Right Arm] O2 Sat by Pulse Oximetry 99 100 03/12/21 11:29 03/12/21 11:30 03/12/21 11:32 Temperature Pulse Rate 70 87 Pulse Rate [Left Radial] Respiratory Rate 30 H 31 H Blood Pressure 144/90 Blood Pressure [Left Arm] Blood Pressure [Right Arm] O2 Sat by Pulse Oximetry 100 100 03/12/21 11:45 03/12/21 12:00 03/12/21 12:15 Temperature Pulse Rate 82 83 80 Pulse Rate [Left Radial] Respiratory Rate 29 H Blood Pressure 152/74 Blood Pressure [Left Arm] Blood Pressure [Right Arm] O2 Sat by Pulse Oximetry 96 92 L 92 L 03/12/21 12:30 03/12/21 12:45 03/12/21 13:00 Temperature Pulse Rate 86 83 80 Pulse Rate [Left Radial] Respiratory Rate 43 H 41 H 33 H Blood Pressure 137/70 119/71 Blood Pressure [Left Arm] Blood Pressure [Right Arm] O2 Sat by Pulse Oximetry 95 98 03/12/21 13:15 03/12/21 13:30 03/12/21 13:45 Temperature Pulse Rate 76 77 82 Pulse Rate [Left Radial] Respiratory Rate 26 H 33 H 43 H Blood Pressure 128/78 Blood Pressure [Left Arm] Blood Pressure [Right Arm] O2 Sat by Pulse Oximetry 99 99 98 03/12/21 14:00 03/12/21 14:15 03/12/21 14:30 Temperature Pulse Rate 76 91 H 98 H Pulse Rate [Left Radial] Respiratory Rate 31 H 33 H 33 H Blood Pressure 126/61 127/60 Blood Pressure [Left Arm] Blood Pressure [Right Arm] O2 Sat by Pulse Oximetry 100 94 L 95 03/12/21 15:00 03/12/21 16:00 03/12/21 16:41 Temperature 97.3 F L Pulse Rate 114 H Pulse Rate [Left Radial] Respiratory Rate 25 H 38 H Blood Pressure Blood Pressure [Left Arm] 143/95 Blood Pressure [Right Arm] O2 Sat by Pulse Oximetry 100 97 03/12/21 17:47 03/12/21 18:17 03/12/21 20:00 Temperature 98.2 F Pulse Rate Pulse Rate [Left Radial] 85 Respiratory Rate 18 17 24 Blood Pressure Blood Pressure [Left Arm] Blood Pressure [Right Arm] 120/74 O2 Sat by Pulse Oximetry 95 03/12/21 20:21 03/12/21 21:00 03/12/21 21:21 Temperature Pulse Rate 103 H Pulse Rate [Left Radial] Respiratory Rate 30 H 25 H Blood Pressure Blood Pressure [Left Arm] Blood Pressure [Right Arm] O2 Sat by Pulse Oximetry 98 03/13/21 00:00 03/13/21 00:13 03/13/21 00:15 Temperature 97.4 F L Pulse Rate 95 H Pulse Rate [Left Radial] 61 Respiratory Rate 22 30 H Blood Pressure Blood Pressure [Left Arm] Blood Pressure [Right Arm] 139/67 O2 Sat by Pulse Oximetry 100 97 03/13/21 00:43 03/13/21 04:00 03/13/21 05:25 Temperature 97.6 F Pulse Rate 90 Pulse Rate [Left Radial] 72 Respiratory Rate 22 18 Blood Pressure Blood Pressure [Left Arm] Blood Pressure [Right Arm] 127/74 O2 Sat by Pulse Oximetry 97 97 03/13/21 08:00 03/13/21 09:43 03/13/21 12:00 Temperature 97.8 F 97.5 F L Pulse Rate 85 Pulse Rate [Left Radial] 88 84 Respiratory Rate 22 24 Blood Pressure Blood Pressure [Left Arm] Blood Pressure [Right Arm] 176/82 170/87 O2 Sat by Pulse Oximetry 96 96 96 03/13/21 12:01 03/13/21 13:01 03/13/21 13:05 Temperature Pulse Rate 84 Pulse Rate [Left Radial] Respiratory Rate 21 19 Blood Pressure Blood Pressure [Left Arm] Blood Pressure [Right Arm] O2 Sat by Pulse Oximetry 96 03/13/21 16:00 03/13/21 17:10 03/13/21 20:00 Temperature 97.6 F 97.9 F Pulse Rate 88 Pulse Rate [Left Radial] 89 84 Respiratory Rate 30 H 30 H Blood Pressure Blood Pressure [Left Arm] Blood Pressure [Right Arm] 153/77 137/80 O2 Sat by Pulse Oximetry 94 L 94 L 96 03/13/21 20:48 03/13/21 22:14 03/13/21 23:14 Temperature Pulse Rate 84 Pulse Rate [Left Radial] Respiratory Rate 26 H 22 Blood Pressure Blood Pressure [Left Arm] Blood Pressure [Right Arm] O2 Sat by Pulse Oximetry 98 03/14/21 00:00 03/14/21 04:00 Temperature 97.6 F 97.6 F Pulse Rate Pulse Rate [Left Radial] 81 86 Respiratory Rate 24 26 H Blood Pressure Blood Pressure [Left Arm] Blood Pressure [Right Arm] 178/86 164/82 O2 Sat by Pulse Oximetry 95 95 Labs: Laboratory Last Values WBC 20.0 X10^3/uL (3.6-10.0) H 03/14/21 04:00 RBC 4.33 X10^6/uL (3.5-5.4) 03/14/21 04:00 Hgb 13.4 g/dL (12.0-16.0) 03/14/21 04:00 Hct 39.9 % (36.0-47.0) 03/14/21 04:00 MCV 92.3 fL (80.0-100.0) 03/14/21 04:00 MCH 30.9 pg (27.0-34.0) 03/14/21 04:00 MCHC 33.5 g/dL (33.0-35.0) 03/14/21 04:00 RDW 13.7 % (11.6-16.5) 03/14/21 04:00 Plt Count 482 X10^3/uL (150.0-450.0) H 03/14/21 04:00 Plt Count Comment Increased (ADEQUATE) A 03/13/21 05:15 MPV 7.7 fL (7.4-11.0) 03/14/21 04:00 Neut % (Auto) 83.2 % (42.0-75.0) H 03/14/21 04:00 Lymph % (Auto) 13.9 % (21.0-51.0) L 03/14/21 04:00 Gallia % (Auto) 2.8 % (0.0-13.0) 03/14/21 04:00 Eos % (Auto) 0.0 % (0.9-2.9) L 03/14/21 04:00 Baso % (Auto) 0.1 % (0.2-1.0) L 03/14/21 04:00 Neut # (Auto) 16.6 x10^3/uL (2.2-4.8) H 03/14/21 04:00 Lymph # (Auto) 2.8 X10^3/uL (1.3-2.9) 03/14/21 04:00 [place] # (Auto) 0.6 x10^3/uL (0.3-0.8) 03/14/21 04:00 Eos # (Auto) 0.0 x10^3/uL (0.0-0.2) 03/14/21 04:00 Baso # (Auto) 0.0 X10^3/uL (0.0-0.1) 03/14/21 04:00 Absolute Nucleated RBC 0.1 /100WBC 03/14/21 04:00 Total Counted 100 03/13/21 05:15 Neutrophils % (Manual) 75 % (39-76) 03/13/21 05:15 Band Neutrophils % 4 % (0-10) 03/13/21 05:15 Lymphocytes % (Manual) 17 % (13-43) 03/13/21 05:15 Monocytes % (Manual) 4 % (4-9) 03/13/21 05:15 Plt Morphology Comment Normal (NORMAL) 03/13/21 05:15 RBC Morphology Normal (NORMAL) 03/13/21 05:15 D-Dimer 0.51 ug/ml (0.0-0.57) 03/12/21 09:45 Sample Site Rrad 03/12/21 12:25 ABG pH 7.520 (7.35-7.45) H 03/12/21 12:25 ABG pCO2 32.0 mmHg (35.0-45.0) L 03/12/21 12:25 ABG pO2 73.0 mmHg (80.0-100.0) L 03/12/21 12:25 ABG HCO3 26.1 mmol/L (22-26) H 03/12/21 12:25 ABG O2 Saturation 96.0 % (90-100) 03/12/21 12:25 ABG Base Excess 3.6 mmol/L (-2.0-2.0) H 03/12/21 12:25 Grant Test Pos 03/12/21 12:25 A-a Gradient 37.0 mmHg 03/12/21 12:25 FiO2 21.0 03/12/21 12:25 Blood Gas Comments Pt rajni well elj cdn 03/12/21 12:25 Sodium 144 mmol/L (136-145) 03/14/21 04:00 Corrected Sodium 145 mmol/L (136-145) 03/14/21 04:00 Potassium 4.3 mmol/L (3.5-5.1) 03/14/21 04:00 Chloride 108 mmol/L (98-107) H 03/14/21 04:00 Carbon Dioxide 25.1 mmol/L (21-32) 03/14/21 04:00 BUN 9 mg/dL (7-18) 03/14/21 04:00 Creatinine 0.79 mg/dL (0.55-1.02) 03/14/21 04:00 Est GFR (MDRD) Af Amer > 60 (>60) 03/14/21 04:00 Est GFR (MDRD) Non-Af > 60 (>60) 03/14/21 04:00 Glucose 154 mg/dL (65-99) H 03/14/21 04:00 Lactic Acid 1.6 mmol/L (0.4-2.0) 03/12/21 09:45 Calcium 8.7 mg/dL (8.5-10.1) 03/14/21 04:00 Corrected Calcium 10.0 mg/dL (8.5-10.1) 03/14/21 04:00 Total Bilirubin 0.20 mg/dL (0.2-1.0) 03/14/21 04:00 AST 19 Units/L (15-37) 03/14/21 04:00 ALT 37 Units/L (12-78) 03/14/21 04:00 Alkaline Phosphatase 70 Units/L (46-116) 03/14/21 04:00 Troponin I < 0.02 ng/mL (0-1.5) 03/12/21 09:45 Total Protein 6.3 g/dL (6.4-8.2) L 03/14/21 04:00 Albumin 2.4 g/dL (3.4-5.0) L 03/14/21 04:00 Globulin 3.9 g/dL (2.5-4.5) 03/14/21 04:00 Albumin/Globulin Ratio 0.6 Ratio (1.1-2.1) L 03/14/21 04:00 SARS-CoV-2 (PCR) Negative (NEGATIVE) 03/12/21 09:57 Influenza Type A (PCR) Negative (NEGATIVE) 03/12/21 09:57 Influenza Type B (PCR) Negative (NEGATIVE) 03/12/21 09:57 RSV (PCR) Positive (NEGATIVE) A 03/12/21 09:57 Reason For Visit: ACUTE BRONCHIOLITIS RSV, ACUTE BRONCHIOSPASM Discharge Date Discharge Date: 03/14/21 Discharge Diagnosis All Active Problems (Updated 03/13/21 @ 09:35 by Parminder Ramires) Asthma exacerbation (Acute) Acute bronchiolitis due to respiratory syncytial virus (Acute) Acute bronchospasm (Acute) Plan of Treatment: Continue with present treatment and follow up plan. Pt is to keep follow up appointment as instructed and take medications as ordered. Discharge Medications Discharge Medications: lisinopril Allergy (Verified 03/12/21 09:30) sulfamethoxazole [From Bactrim] Allergy (Verified 03/12/21 09:30) trimethoprim [From Bactrim] Allergy (Verified 03/12/21 09:30) CONTINUE taking the following medications alprazolam 1 - 2 mg PO BID PRN 03/12/21 [History] atorvastatin 40 mg PO HS 03/12/21 [History] azithromycin 250 mg PO DIRECTED 03/12/21 [History] hydrocodone-acetaminophen 1 tab PO BID 03/12/21 [History] ipratropium-albuterol 1 ml INHALATION BID 03/12/21 [History] ketorolac 10 mg PO PRN PRN 03/12/21 [History] metoprolol tartrate 50 mg PO TID PRN 03/12/21 [History] prednisone 20 mg PO DIRECTED 03/12/21 [History] New Prescriptions hydrocodone-chlorpheniramine 5 ml PO HS PRN 30 Days #150 ml MDD 5mL 03/14/21 [Rx] nicotine [Nicoderm CQ] 1 ea TD DAILY 30 Days #30 ea 03/14/21 [Rx] Discharge Disposition Assessment: Stable no acute distress noted at time of discharge. Discharge Plan Discharge Plan Patient Disposition: 01 HOME, SELF-CARE Condition: Stable Health Concerns: Post Hospitalization: new medications and changes needed to prevent readmission or further decline. Pt educated and given instructions on all concerns. Care Plan Goals: Problem: Respiratory Complications Goal: Improved Uncomplicated Respiratory Status Instructions: Follow provided instructions. Follow up with primary physician as directed. Contact primary care physician or report to the closest Emergency Room if condition worsens. Plan of Treatment: Continue with present treatment and follow up plan. Pt is to keep follow up appointment as instructed and take medications as ordered. Assessment: Stable no acute distress noted at time of discharge. Prescriptions: New nicotine [Nicoderm CQ] 21 mg/24 hr Patch 24 Hour 1 ea TD DAILY 30 Days Qty: 30 RF: 1 hydrocodone-chlorpheniramine 10-8 mg/5 mL Suspension,Extended Rel 12 Hr 5 ml PO HS MDD 5mL PRN (Reason: Cough) 30 Days Qty: 150 RF: 0 Continued atorvastatin 40 mg tablet 40 mg PO HS RF: 0 ipratropium-albuterol 0.5 mg-3 mg(2.5 mg base)/3 mL solution for nebulization 1 ml INHALATION BID RF: 0 azithromycin 250 mg tablet 250 mg PO DIRECTED RF: 0 alprazolam 1 mg tablet 1 - 2 mg PO BID PRNRF: 0 prednisone 20 mg tablet 20 mg PO DIRECTED RF: 0 hydrocodone-acetaminophen 10-325 mg tablet 1 tab PO BID RF: 0 ketorolac 10 mg tablet 10 mg PO PRN PRNRF: 0 metoprolol tartrate 50 mg tablet 50 mg PO TID PRNRF: 0 Discontinued cefdinir 300 mg capsule 300 mg PO BID RF: 0 Follow ups/Referrals Follow ups/Referrals: Parminder Ramires [Primary Care Provider] - 3 days Instructions Instructions: Shortness of Breath, Adult, [id number], Nonspecific Chest Pain, [id number], Hypoxia, Asthma, Adult, [id number], Respiratory Syncytial Virus, Adult Stand Alone Forms: Excuse From Work or School, Precautions for COVID19, Patient Portal, Social Distancing
[2021-03-14] MEDS: LOPRESSOR TAB 50 MG PO SCH (08:13)
[2021-03-14] MEDS: NICOTINE PATCH TD SCH (08:13)
[2021-03-14] MEDS: ROBITUSSIN DM PO SCH (08:13)
[2021-03-14] MEDS: LOVENOX INJ 40 MG SYR SC SCH (08:14)
[2021-03-14 08:24] VITALS: BP 171/85
== END 2021-03-14 09:10 | disposition home or self-care (01) | DRG 202 ==
LOC: ER 09:29 → MED/SURG 12:13
PROVIDERS: ADMIT Family Medicine; ATTEND Family Medicine
DX: Z72.0 Tobacco use; R06.02 Shortness of breath; Z20.828 Contact with and (suspected) exposure to other viral communicable diseases; R07.89 Other chest pain; J21.0 Acute bronchiolitis due to respiratory syncytial virus; I10 Essential (primary) hypertension; F41.8 Other specified anxiety disorders; J45.901 Unspecified asthma with (acute) exacerbation; E78.2 Mixed hyperlipidemia